=== PATIENT | male | born 1995 | race Caucasian/White ===

== ENCOUNTER 2016-11-24 16:07 | Emergency (ER) | payer SELFPAY ==
[~2016-11-24] VITALS: Ht 185.4 cm; Wt 141.8 kg
[2016-11-24 16:14] VITALS: BP 121/84; PULSE 105; RESP 17; O2SAT 97
--- NOTE | 2016-11-24 20:00 | ED.REPORT ---
HPI-Trauma Minor / Fall Date of Service November 24, 2016 ED Provider: Low Tapia MD The pt is a healthy 20 y/o male presenting to the ED complaining of pain to the coccyx onset 4 days ago. He was walking down his wooden stairs and fell landing on his backside bouncing off multiple steps. 3 days ago he went to [facility] where x-ray showed a fractured coccyx. The pt can only sit on hip and side due to the pain. He is required to stand 4 hrs a week 3x/day for school and is having difficulty managing the pain. He is currently taking 800 mg of ibuprofen every 3-4 hours and 2 500 mg doses of acetaminophen once a day which has not helped w/ the pain. He reports being unable to sleep comfortably at night. Pt denies any other injuries. Nursing Notes Stated Complaint: TAIL BONE Chief Complaint: Back Pain or Injury Nursing Notes Reviewed: Yes Allergies: Coded Allergies: Cat Dander (Verified Allergy, Mild, 11/24/16) Dog Dander (Verified Allergy, Mild, 11/24/16) Uncoded Allergies: DUST MITES (Allergy, Unknown, 11/05/15) Scheduled PRN Hydrocodone-Acetaminophen 5-325 mg (Hydrocodone-Acetaminophen 5-325 mg) 1 Each Tablet 1-2 TABLET PO HS PRN PRN For Pain General Time Seen by MD: 19:57 Chief Complaint Other (Tailbone pain ) Hx Obtained From: Patient Arrived By: Walk-in Onset Occurred: 4 days ago Symptom Duration: Since onset Caused by: Fall down stairs Quality: Painful Severity: Current: Moderate Associated with: Denies: Fever, Loss of consciousness Recent Healthcare: No recent hospitalization, Recent doctor visit Similar Sx Previous: No Past Medical History Past Medical History Exercise induced asthma Past Surgical History none reported Smoking History Former Smoker Social History Alcohol Use: "Social" Ambulatory Status Independent Review of Systems Basic Review of Systems Cardiovascular: No chest pain, No dyspnea on exertion, No orthopnea, No parox noct dyspnea, No palpitations GI: No abdominal pain, No anorexia, No nausea, No vomiting Hematologic: No bleeding, No bruising Psychiatric: Normal thought content Respiratory: Denies: Shortness of breath Musculoskeletal: Reports: Back pain, Lumbar pain, Denies: Neck pain Neurologic: Denies: Change LOC, Numbness, Problem walking, Weakness Complete sys rev & neg: except as marked. Physical Exam Initial Vital Signs Vital Signs (First) Date Time Temp Pulse Resp B/P Pulse Ox O2 Delivery O2 Flow Rate FiO2 11/24/16 16:14 37.2 105 17 121/84 97 Room Air Initial VS: Reviewed Head / Eyes: Atraumatic, Normocephalic, PERRL ENT: Conjunctiva normal, No scleral icterus Respiratory: No respiratory distress Extremities: Vascular intact, Neuro intact, No swelling, No tenderness Skin: Warm, Dry, No cyanosis Neurologic: Alert, Oriented, Nonfocal Psychiatric: Mood/affect normal, Behavior normal, Normal thought content General/Constitutional: Awake, Alert Neck: Atraumatic, No midline vertebral tend Back: Coccyx pain no midline lumbar tenderness. Pain with ROM Re-Eval/Medical Decision Re-Evaluation/Progress : Time of Eval: 20:05 Re-Evaluation/Progress Note: Discussed plan for discharge and follow up. All questions addressed. Pt denies any hx of addiction in the past. Counseled Regarding: Diagnosis, Need for follow-up, When/why to return to ED Discharge & Departure Impression: Primary Impression: Fractured coccyx Encounter type: initial encounter Fracture type: closed Qualified Code: S32.2XXA - Fracture of coccyx, initial encounter for closed fracture Disposition: Home Discharge Condition All VS Reviewed: Yes Condition: Stable Patient Instructions: Coccyx Injury (ED) Additional Instructions: Take ibuprofen every 8 hours 800 mg. Acetaminophen (Tylenol) 1000 mg every 6 hours. Hydrocodone/APAP 5/325 one or 2 at bedtime as needed for severe pain. Do not take more than 4000 mg of acetaminophen every 24 hours. Each hydrocodone /APAP tablet contains 325 mg of acetaminophen. Follow-up in a few weeks if not improving. Referrals: Marsisa Casey MD (PCP) Scribe Attestation Portions of this note were transcribed by Hermelinda Aparicio and Froylan Holden. I, (Dr. Tapia) personally performed the history, physical exam and medical decision- making; I reviewed and confirmed the accuracy of the information in the transcribed note. Signed by: Hermelinda Holden. Scribe, 11/24/2016, [id number] copies to: Marissa Casey MD, Kirk H MD November 24, 2016 20:00 Froylan Holden November 24, 2016 20:08 Hermelinda Aparicio November 24, 2016 20:58
[2016-11-24] MEDS ORDERED: HYDR-4003 PO (20:11)
[2016-11-24 20:22] VITALS: BP 122/74; PULSE 78; RESP 18; O2SAT 98
== END 2016-11-24 20:24 ==
LOC: SED 16:07
DX: S32.2XXA Fracture of coccyx, initial encounter for closed fracture (principal); W10.8XXA Fall (on) (from) other stairs and steps, initial encounter; Y93.01 Activity, walking, marching and hiking; Y92.9 Unspecified place or not applicable; Y99.9 Unspecified external cause status; Z87.891 Personal history of nicotine dependence